=== PATIENT | female | born 1970 | race Caucasian/White ===

== ENCOUNTER 2020-01-18 22:13 | Emergency (ER) | payer BC ==
[~2020-01-18] VITALS: Ht 170.2 cm; Wt 136.4 kg
[2020-01-18 22:19] VITALS: TEMP 98.7
[2020-01-18 22:54] LABS: HEMATOCRIT 40.8 % (37.0-47.0); HEMOGLOBIN 12.3 g/dl (12.5-16.0); MEAN CELL VOLUME 76 fl (80.0-100.0); MEAN CORPUSCULAR HEMOGLOBIN 23 pg (27.0-31.0); MEAN CORPUSCULAR HGB CONC 30 g/dl (33.0-37.0); PLATELET COUNT 209 K/mm3 (130-400); RED BLOOD COUNT 5.37 M/mm3 (4.10-5.30); REDCELL DISTRIBUTION WIDTH-CV 15.9 % (11.5-14.5)
[2020-01-18 23:09] LABS: ALBUMIN 3.9 gm/dL (3.5-5.0); CREATININE, serum 1.16 (0.52-1.25); INR 1.3 (0.8-3.0); POTASSIUM 4.2 mmol/L (3.4-5.0); PROTHROMBIN TIME 14.5 SECONDS (9.7-12.8); TOTAL PROTEIN 7.6 gm/dL (6.4-8.2)
[2020-01-18 23:18] LABS: TROPONIN-I 0.015 ng/mL (0.000-0.035)
[2020-01-18 23:21] LABS: D-DIMER > 5250.00 ng/mLDDu (200-230)
[2020-01-18] MEDS ORDERED: GLUCOTROL 5M5 MG/TAB PO (23:23)
[2020-01-18] MEDS ORDERED: ASPIRIN 81M81 MG/TA2 PO (23:23)
[2020-01-18] MEDS ORDERED: GLUCOPHAGE1000 MG PO (23:24)
[2020-01-18] MEDS ORDERED: COMPAZINE 110 MG/TAB PO (23:25)
[2020-01-18] MEDS ORDERED: ZOCOR 40MG40 MG PO (23:26)
[2020-01-18] MEDS ORDERED: JANUVIA 100MG100 MG PO (23:26)
[2020-01-18] MEDS ORDERED: B COMPLEX & B121 TAB (23:26)
[2020-01-18 23:39] LABS: C-REACTIVE PROTEIN 47.7 mg/dL (0.0-0.9)
[2020-01-18 23:41] LABS: ARTERIAL BLD GAS TCO2 CT 20.6; ARTERIAL BLOOD GAS HCO3 19.7 meq/L (22-26); ARTERIAL BLOOD GAS PCO2 28.7 mmHg (35-45); ARTERIAL BLOOD GAS PO2 77.3 mmHg (80-100); ARTERIAL BLOOD GAS pH 7.45 (7.35-7.45)
[2020-01-18 23:42] LABS: BAND 17 % (0-10); LYMPHOCYTE 8 % (20.0-51.0); MICROCYTOSIS 2+; NEUTROPHILS 56 % (42.0-75.2); PLATELET ESTIMATE NORMAL (NORMAL)
[2020-01-19 02:50] VITALS: BP 124/83; PULSE 108
== END 2020-01-19 02:55 | disposition short-term general hospital (02) ==
LOC: COL.ER 22:13
PROVIDERS: Emergency Medicine
DX: R06.02 Shortness of breath (principal); E11.9 Type 2 diabetes mellitus without complications; Z20.828 Contact with and (suspected) exposure to other viral communicable diseases; Z79.82 Long term (current) use of aspirin; Z79.84 Long term (current) use of oral hypoglycemic drugs; Z85.028 Personal history of other malignant neoplasm of stomach
CPT/HCPCS: J2543; J7030; Q9967